=== PATIENT | female | born 1980 | race Caucasian/White ===

== ENCOUNTER 2022-03-16 13:54 | Outpatient (CLI) | payer BC, SELFPAY ==
--- NOTE | 2022-03-16 15:08 | ECG_ITS ---
Measurements Intervals [place] Rate: 75 P: 69 WY: 156 QRS: 55 QRSD: 88 T: 40 QT: 346 QTc: 389 Interpretive Statements SINUS RHYTHM NORMAL ECG Electronically Signed On 03-16-2022 15:28:08 CDT by Jhonathan Linares D.O.
== END 2022-03-16 13:55 | disposition home or self-care (01) ==
PROVIDERS: PCP Internal Medicine Infectious Disease; Visit Provider Obstetrics & Gynecology
DX: F17.210 Nicotine dependence, cigarettes, uncomplicated (principal); Z01.818 Encounter for other preprocedural examination
CPT/HCPCS: 93005

== ENCOUNTER 2022-03-22 00:28 | Day surgery (SDC) | payer BC, SELFPAY ==
[2022-03-14 13:33] VITALS: BMI 26.1
--- NOTE | 2022-03-14 13:41 | SUR.PREOP ---
Report to the Outpatient Waiting Room, entrance under the green pavilion located off [facility], at time _1000 on date _03/22/22 . OR Time: _1200 . - You and your visitor will be asked a series of questions to screen for COVID 19 for your protection. - Only one visitor is allowed at this time. - The patient visitor is requested to leave or wait in car when not with patient. - A mask is required within the hospital. Patients may have clear liquids (water, carbonated beverages, clear teas, apple juice) until 3 hours prior to surgery with a maximum of 20 ounces. - No food from midnight until time of surgery - Infants may have breast milk until 4 hours before surgery, infant formula 6 hours prior to surgery. - Children will be allowed to drink immediately following surgery. If applicable, please bring a bottle or sippy cup to assist with drinking. Juice, water, soda, and popsicles are readily available. For infants on formula, please bring formula the day of surgery. Pacifiers are allowed. Take the following medications with a SIP of water the morning of surgery: __qvar inhaler Medications to discontinue per physician ____vitamin Date to take last dose__03/19/22 Please no make-up, nail spanish, hairspray, perfume, deodorant, or body powder the day of surgery. No jewelry (including any body piercings) or valuables the day of surgery, leave them at home. Please take a shower or bath the night before, or the morning of, surgery with an antibacterial soap. Wear comfortable, loose fitting clothing. Children are encouraged to wear pajamas. - Jewelry must be removed prior to entering the operating room. Rings and piercings that are not removed may be cut off. - The hospital will not accept responsibility for valuables. - Please leave all valuables, including medications, at home the day of surgery. If you are going home after surgery, a licensed industrial truck driver must drive you home. - NO public transportation without another adult. - We recommend that an adult stay with you for 24 hours following discharge. - We also recommend that you do not drive, make important decision, drink alcoholic beverages, or take any drugs that were not prescribed by your health care provider for at least 24 hours after your discharge time. For Pediatric surgeries, we recommend two adults accompany the child home (only one inside the building at this time). Follow any additional instructions given to you from your surgeon. If you or anyone in your household have experienced Covid symptoms in the past week, please notify your surgeon or the nurse liaison at the phone number below for possible testing. Telephone instructions given to suzanna lin and asked if any additional questions and then verbalized understanding. Patient advised to call surgeon office or pre surgery nurse liaison [phone] if any additional questions.
--- NOTE | 2022-03-21 22:13 | PM.IMHP ---
H&P: HPI History of Present Illness Date/Time: 03/21/22 22:13 She is scheduled for laparoscopic bilateral salpingectomy due to her desire for sterilization. She declines nonpermanent forms of contraception. She is aware of added benefit of decrease future risk of ovarian cancer with a salpingectomy as sterilization procedure. Chief Complaint: Undesired fertility. Desires permanent sterilization. Review of Systems Review of Systems: All systems reviewed & are unremarkable except as noted in HPI and below Cardiovascular: Cardiovascular: Reports no additional cardiovascular complaints, Denies chest pain and Denies dyspnea Respiratory: Respiratory: Reports no additional respiratory complaints and Denies dyspnea Gastrointestinal: Gastrointestinal: Reports abdominal pain, Denies change in bowel habits, Denies diarrhea, Denies nausea and Denies vomiting Genitourinary: Genitourinary: Reports pelvic pain Musculoskeletal: Musculoskeletal: Reports back pain Integumentary/Breasts: Skin/Breast: Reports system reviewed and no additional complaints, except as docu Neurologic: Reports system reviewed and no additional complaints, except as documented PMFSH Past Medical History Medical History Seasonal allergic rhinitis Vaginal delivery x4 Surgical History Surgical History H/O LEEP History of appendectomy History of cholecystectomy History of nasal surgery Family History Family History Grandparent Family history of heart disease in male family member before age 55 Other Diabetes mellitus Family history of allergic disorder Social History Social History Smoking status: Current every day smoker Tobacco type: cigarettes Second hand tobacco smoke exposure: No Additional smoking assessment comments: 26 years 1ppd Alcohol intake: never Substance use: unknown Living arrangements: with family Spiritual care concerns: No Meds Home Medications and Allergies Home Medications Medication Instructions Recorded Confirmed Type albuterol sulfate 90 mcg/actuation 1 inhalation INHALATION Q4-6H PRN 08/03/20 03/22/22 History breath activated powder inhaler cetirizine 10 mg capsule 10 mg PO DAILY 08/03/20 03/22/22 History beclomethasone dipropionate [Qvar 1 inh INHALATION DAILY 03/14/22 03/22/22 History RediHaler] bsdzmvhxdupl-oswh-kkryd acid 1 tablet PO DAILY 03/14/22 03/22/22 History [Centrum Women] Allergies Allergy/AdvReac Type Severity Reaction Status Date / Time No Known Allergies Allergy Unknown Verified 03/15/22 15:14 Exam Const: Orientation/consciousness: oriented to person and oriented to place HENMT: Head: normal to inspection Eyes: General: appearance normal, both eyes and all related structures Resp: Effort & Inspection: normal respiratory effort Auscultation: clear to auscultation bilaterally Cardio: Rate: regular rate Rhythm: regular rhythm GI: Inspection: normal to inspection GI Palp: No Rebound tenderness present : External Female Exam: normal external appearance Speculum Exam - Vagina: normal appearance of the vagina Speculum Exam - Cervix: normal appearance of the cervix Bimanual Exam- Adnexa, other: no masses Neuro: General: oriented to person and oriented to place Cognition (Neuro): normal cognition Extrem: General: normal to inspection Psych: Appearance: grossly normal and well kempt Assessment and Plan Assessment and plan (1) Encounter for sterilization: Code(s): Z30.2 - Encounter for sterilization Status: Acute Assessment and Plan: Will proceed with laparoscopic bilateral salpingectomy.
[2022-03-22] VITALS (9 sets, daily range): BP systolic 77–101; BP diastolic 41–68; PULSE 50–75; RESP 12–20; TEMP 36.4; O2SAT 98–100
[2022-03-22] MEDS: ACETAMINOPHEN 500 MG TABLET 1000 MG PO (10:13)
[2022-03-22] MEDS: LACTATED RINGERS 1,000 ML 30 ML IV CONT ×2 (10:30→13:11)
[2022-03-22] MEDS: KETOROLAC 15 MG/ML VIAL (*BKC) IV PUSH (10:34)
--- NOTE | 2022-03-22 11:13 | WPDHPUPDATE1 ---
History and Physical Update Update Date/Time: 03/22/22 11:13 History and Physical has been reviewed, including an updated exam of the patient. There are NO changes in the patient's condition. Risks, benefits, and alternatives have been discussed and questions answered. Patient agrees to proceed with procedure.
--- NOTE | 2022-03-22 11:14 | WPDHPUPDATE1 ---
History and Physical Update Update Date/Time: 03/22/22 11:14 History and Physical has been reviewed, including an updated exam of the patient. There are NO changes in the patient's condition. Risks, benefits, and alternatives have been discussed and questions answered. Patient agrees to proceed with procedure.
--- NOTE | 2022-03-22 11:33 | WPDANESEPPF ---
Anes - Initial Pre Proc Eval Procedure: Operation Date: 03/22/22 12:00 Proposed Procedures p Bilateral Laparoscopic Salpingectomy - Bon Jacome MD Date/Time: 03/22/22 11:33 Surgeon: Bon Jacome MD Pre Op Diagnosis: desires sterilization Patient Data Age: 41 Gender: F Height: 1.6 m Weight: 66.6 kg Last Vital Signs Temp 36.4 C 03/22/22 10:26 Pulse 75 03/22/22 10:26 Resp 20 03/22/22 10:26 BP 101/46 L 03/22/22 10:26 Pulse Ox 98 03/22/22 10:26 Allergies Allergy/AdvReac Type Severity Reaction Status Date / Time No Known Allergies Allergy Unknown Verified 03/15/22 15:14 Home Medications Medication Instructions Recorded Confirmed Type albuterol sulfate 90 mcg/actuation 1 inhalation INHALATION Q4-6H PRN 08/03/20 03/22/22 History breath activated powder inhaler cetirizine 10 mg capsule 10 mg PO DAILY 08/03/20 03/22/22 History beclomethasone dipropionate [Qvar 1 inh INHALATION DAILY 03/14/22 03/22/22 History RediHaler] xnvgyxixitsc-nole-hdblk acid 1 tablet PO DAILY 03/14/22 03/22/22 History [Centrum Women] Patient hx anesthesia problems: none Family hx anesthesia problems: none Results Review: All pre-operative results and documents have been reviewed as part of the pre-operative evaluation. PMFSH Past Medical History Medical History Seasonal allergic rhinitis Vaginal delivery x4 Surgical History Surgical History H/O LEEP History of appendectomy History of cholecystectomy History of nasal surgery Family History Family History Grandparent Family history of heart disease in male family member before age 55 Other Diabetes mellitus Family history of allergic disorder Social History Social History Smoking status: Current every day smoker Tobacco type: cigarettes Second hand tobacco smoke exposure: No Additional smoking assessment comments: 26 years 1ppd Alcohol intake: never Substance use: unknown Living arrangements: with family Spiritual care concerns: No Anes - Eval Final PreProcedure Day of Procedure 03/22/22 11:33 Patient weight: normal Heart: regular rate and rhythm Lungs: clear to auscultation Airway: Mallampati scale class II Neurological: alert and oriented Last oral intake: >/= 8 hours ASA classification: II Emergent: no Anesthetic plan: proceed Anesthesia type and monitoring: general ETT and standard monitoring Results Review: All pre-operative results and documents have been reviewed as part of the pre-operative evaluation. Informed Consent: The patient's anesthetic plan and its attendant risks and benefits were discussed with the patient/family/POA. Questions were solicited and answers provided to the satisfaction of the patient/family/POA.
--- NOTE | 2022-03-22 12:11 | P.OP_ITS ---
Procedure Note - Detailed Date of Procedure 03/22/22 Pre-op Diagnosis desires sterilization Post-op Diagnosis Same Procedure Performed Laparoscopic bilatetal salpingectomy Surgeon Bon Jacome MD Anesthesia General Indications Undesired fertility Findings Normal uterus fallopian tubes and ovaries Description of Procedure After informed consent was obtained patient was taken to the operating room and general endotracheal anesthesia was administered. She was placed in low lithotomy need prep prepped sterile fashion. Attention was turned to the vagina speculum inserted single-tooth tenaculum placed on anterior lip of the cervix. Hooker uterine manipulator placed into the cervical canal. The speculum was removed. Attention was then turned to the abdomen. With sterile gloves a horizontal incision was made at the umbilicus and a Veress needle was inserted into the abdomen confirmation into the abdomen obtained with free flow of fluid and normal peritoneal pressures. A pneumoperitoneum of 15 mm per mercury was obtained. The 5 mm port was inserted under laparoscopic visualization. Patient was placed in Trendelenburg position. Attention was turned to the left side of the abdomen and a 5 mm port was inserted under laparoscopic visualization. The pelvic organs were visualized. Attention was turned to the right side of the abdomen and another 5 mm port was inserted under laparoscopic visualization. Using the LigaSure the left fallopian tube was excised to near the entrance to the uterus. This was removed through the port. Attention was then turned to the right fallopian tube which was grabbed at the distal end and cauterized from the mesial salpinx to near the entrance to the uterus. The fallopian tube was removed through the 5 mm port. Hemostasis was noted at both sites. Patient was taken out of Trendelenburg position the pneumoperitoneum was released and the skin incisions were closed in a subcuticular fashion with 4 O Vicryl. Estimated Blood Loss 5 Drains No Packing No Pathology Yes (right and left fallopian tube) Complications No immediate complications Condition Stable Disposition Same day [facility] Billing Surgery - Charge Forward: Surgery Billing
[2022-03-22] MEDS: BUPIVACAINE HCL 0.5% PF 30 ML VIAL INFILTRATE (12:48)
== END 2022-03-22 15:20 | disposition home or self-care (01) ==
PROVIDERS: PCP Internal Medicine Infectious Disease; Visit Provider Obstetrics & Gynecology
PROC: (CPT 49320; principal; 2022-03-22 12:00)
DX: Z30.2 Encounter for sterilization (principal); N73.6 Female pelvic peritoneal adhesions (postinfective); F17.210 Nicotine dependence, cigarettes, uncomplicated; Z79.51 Long term (current) use of inhaled steroids
CPT/HCPCS: 58661; 88302; 93005; A9270; J0330; J1100; J1885; J2250; J2405; J2704; J3010; J7030; J7120

== ENCOUNTER 2025-08-05 13:45 | Outpatient (CLI) | payer OTHER, SELFPAY ==
--- NOTE | ~2025-08-05 | MM_ITS ---
EXAMINATION: MM screening [facility] BI w bell HISTORY: Screening TECHNIQUE: Craniocaudal and mediolateral oblique 3-D tomosynthesis images were obtained and synthetic 2-D images were generated. CAD analysis was submitted and interpreted. COMPARISON: 02/11/2019 BREAST PARENCHYMAL COMPOSITION: The breasts are heterogeneously dense, which may obscure small masses. FINDINGS: There is no evidence of suspicious mass, calcification, or architectural distortion to suggest malignancy. Focal asymmetry in the lower inner quadrant of the left breast, middle depth. Focal asymmetry in the central left breast, middle depth. IMPRESSION: 1. Focal asymmetry in the lower inner quadrant of the left breast, middle depth. Focal asymmetry in the central left breast, middle depth. The study is incomplete. A diagnostic mammogram and a diagnostic ultrasound are recommended. 2. No mammographic evidence for malignancy in the right breast. BI-RADS 0: Incomplete-Need additional imaging evaluation. Reviewed, dictated and finalized at location Q. IMPRESSION: 1. Focal asymmetry in the lower inner quadrant of the left breast, middle depth . Focal asymmetry in the central left breast, middle depth. The study is incomp lete. A diagnostic mammogram and a diagnostic ultrasound are recommended. 2. No mammographic evidence for malignancy in the right breast. BI-RADS 0: Incomplete-Need additional imaging evaluation.
--- OUTSIDE RECORDS SUMMARY | 2025-08-05 13:50 | XMS_ITS | Encounter Summary ---
Author Organization [facility] Address [address] [place] [address] Care Team Providers Care Electrical Appliance Mechanic Name Role Phone Fidencio Garcia MD Primary Care Provider Encounter Details Date Type Department Care Team (Late st Contact Info) Description 09/01/2020 Telephone [facility] [address] [place] [address] [place] [address] Yu Head MD [address] [place] [address] [address] [place] [address] Social History Tobacco Use Types Packs/Day Years Used Date Smoking Tobacco: Every Day Cigarettes Smokeless Tobacco: Never Comments Unknown Sex and Gender Information Value Date Recorded Sex Assigned at Not on file 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 Patient was advice by doctor not to lift anything over 10lbs. Pt job is requiring her to lift 25+lbs. Patient is wanting to know if she can just have a doctors note stating she can take the rest of the week off until her week of recovery is over. documented in this encounter Plan of Treatment Upcoming Encounters Date Type Department Care Team (Late st Contact Info) Description 09/01/2025 1:30 PM CDT Office Visit [facility] - Dermatology [address] [place] [address], [place] [address] Scott aHnd MD [address] [place] [address] [address] [place] [address] documented as of this encounter Visit Diagnoses Not on filedocumented in this encounter Care Teams Electrical Appliance Mechanic Relationship Specialty Start Date End Date Fidencio Garcia MD [address] [place], [place] [phone] PCP - General 03/29/22 documented as of this encounter
--- OUTSIDE RECORDS SUMMARY | 2025-08-05 13:50 | XMS_ITS | Encounter Summary ---
Author Organization [facility] Address [address] [place] [address] Care Team Providers Care Wedding Photographer Name Role Phone Fidencio Garcia MD Primary Care Provider Reason for Visit * Reason Onset Date Comments Appointment 12/27/2022 Encounter Details Date Type Department Care Team (Late st Contact Info) Description 12/27/2022 Telephone [facility] [address] [place] [address] Scott Hand MD [address] [place] [address] [place] [address] Appointment Social History Tobacco Use Types Packs/Day Years Used Date Smoking Tobacco: Every Day Cigarettes Smokeless Tobacco: Never Alcohol Use Standard Drinks/Week Comments Not Currently 0 (1 standard drink = 0.6 oz pur e alcohol) Comments Unknown Sex and Gender Information Value Date Recorded Sex Assigned at Not on file Legal Sex Female 6: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 Gender Identity Not on file Sexual Orientation Not on file documented as of this encounter Miscellaneous Notes * Telephone Encounter - Katja Asencio - 12/27/2022 12:56 PM CST Pt has hx of Skin CA and is requesting sooner appointment, currently scheduled for March 2023 ICAL TRIALS SYSTEMS ADMINISTRATOR documented in this encounter Plan of Treatment Upcoming Encounters Date Type Department Care Team (Late st Contact Info) Description 09/01/2025 1:30 PM CDT Office Visit [facility] Dermatology [address] [place] [address], [place] [address] Scott Hand MD [address] [place] [address] [address] [place] [address] documented as of this encounter Visit Diagnoses Not on filedocumented in this encounter Care Teams Wedding Photographer Relationship Specialty [place] [address] [place] [phone] PCP - General 03/29/22 documented as of this encounter
--- OUTSIDE RECORDS SUMMARY | 2025-08-05 13:50 | XMS_ITS | Clinical Summary ---
Author Organization [facility] [employer] Address [address] [place] [address] Care Team Providers Care Clip On Sunglasses Inspector Name Role Phone Fidencio Garcia MD Primary Care Provider Source Comments [facility],non-owned Affiliates and Associated Physician Practices is amultiple site organization consisting of ambulatory clinics and hospital sitesin [place], [place], [place] and [place]. This disclosure is being madepursuant to the Care Everywhere program and may not contain all information available regarding this patient. Last updated 18.[facility] [employer] Allergies No known active allergies Medications * Be aware that medications may not be up to date on this document. Alwaysverify current medications with the patient. lidocaine (XYLOCAINE) 2 % viscous solutionIndicati ons:Acute pharyngitis, unspecified etiology 5 mL by Mouth/Throat route 3 times daily as needed for Sore Throat or Pain 100 mL 7 Active Additional Information Patient not taking.Reported on 03/03/2025 norethindrone (ORTHO MICRONOR; NOR-QD; STEPHANIE; BETSEY; WONG-BE; GUERA; JOLIVETTE) 0.35 MG tablet Take by mouth once daily Active albuterol HFA (PROVENTIL;HARMONY NOREEN;PROAIR) 108 (90 Base) MCG/ACT inhaler Inhale by mouth as needed Active QVAR REDIHALER 40 MCG/ACT inhaler Inhale by mouth at bedtime 0 Active Cetirizine HCl (ZYRTEC PO) Take by mouth once daily Active Ascorbic Acid (VITAMIN C ADULT GUMMIES PO) Active fluticasone-salm eterol hfa (Advair HFA) 115-21 MCG/ACT Advair HFA 115 mcg-21 mcg/actuation aerosol inhaler INHALE TWO PUFF BY MOUTH TWICE DAILY Active benzoyl peroxide (Benzac) 5 % washIndications: Inflamed epidermoid cyst of skin,Infectious folliculitis Use as body wash in shower over affected areas 1-2 times daily. Rinse well to avoid bleaching fabrics. 30 day supply. 236 mL 11 4 Active Additional Information Patient not taking.Reported on 03/03/2025 tretinoin (Retin-A) 0.1 % creamIndications :Acne vulgaris Pea sized amount to entire face at night. 30 days supply. 45 g 11 5 Active doxycycline hyclate 100 MG tabletIndication s:Acne Vulgaris Take 1 (one) tablet by mouth 2 times daily Reasons: Common Acne 60 tablet 2 5 Active clindamycin (Cleocin) 1 % lotionIndication s:Inflamed epidermoid cyst of skin Apply to affected areas on body once daily after showering. 30 day supply. 60 mL 11 5 Active Active Problems Problem Noted Date Diagnosed Date Hidradenitis suppurativa 03/05/2025 Neoplasm of uncertain behavior of skin 4 Inflamed epidermoid cyst of skin 06/16/2024 History of severe acute resp iratory syndrome coronavirus 2 (SARS-CoV-2) disease 04/05/2023 Infectious folliculitis 03/29/2021 Assessment & Plan (03/29/2021 10:52 AM CDT): -vs early HS -cont hibiclens -start clindamycin lotion daily after shower Surgical wound present 03/29/2021 Assessment & Plan (03/29/2021 10:53 AM CDT): -s/p oral antibiotics -start duoderm Other viral warts 03/29/2021 Assessment & Plan (03/29/2021 10:52 AM CDT): -R first finger -Patient educated about infectious etiology of verruca -Treatment options discussed, including, cryotherapy, salicylic acid, trichloroacetic acid, -Canthacur with or without Podophyllin, Podophyllin, Imiquimod treatment, netta antigen. -Patient desires treatment: cryotherapy, plan to add netta Ag injection in the future if not significant improvement. -Patient understands that multiple treatments may be required for complete resolution of lesions. -Wound care instructions reviewed and provided -Home care instructions reinforced- apply salicylic acid (Compound W, Dr. Trevinos, etc) at home to verruca overnight. Remove in the morning and file down with disposable emery board then discard used emery board. Discontinueor hold treatment if significant discomfort occurs. History of nonmelanoma skin cancer 03/29/2021 Assessment & Plan (03/29/2021 10:53 AM CDT): -NER today -continue q6m FBSE Actinic skin damage 03/29/2021 Assessment & Plan (03/29/2021 10:53 AM CDT): Explained benign nature, reassurance provided. ABCDEs of melanoma was explained to the pt, advised pt on consistent sunscreen use (SPF > 30, UVA + UVB). Monthly self-exam, and avoid direct sunlight/tanning. Multiple benign melanocytic nevi of upper extremity, lower extremity, and trunk 03/29/2021 Assessment & Plan (03/29/2021 10:53 AM CDT): -very dark s/p tanning bed use -previously biopsied few, all normal -- None atypical or more concerning than others on exam today - Counseled on importance of daily sun protection, and monthly self skin exams - Reviewed ABCDEs of melanoma - Advised sun protective behaviors and regular sun screen use - Annual FBSE Acne vulgaris 11/07/2020 Asthma 2020 Disorder of lipid metabolism 2020 Gastroesophageal reflux disease 2020 Tobacco dependence syndrome 2020 Tobacco user 2020 History of elevated lipids 04/07/2020 History of appendectomy 05/01/2017 Strep throat 12/25/2016 Encounters Date Type Department Care Team Description 05/25/2025 Telephone [facility] - General Dermatology [address] [place] [address] Juan Miguel Sánchez MD Follow-up from Last 3 Months Family History Medical History Relation Name Comments None Known Brother None Known Father None Known Maternal Aunt None Known Maternal Grandfather None Known Maternal Grandmother None Known Maternal Uncle None Known Mother None Known Other None Known Paternal Aunt None Known Paternal Grandfather None Known Paternal Grandmother None Known Paternal Uncle None Known Sister Asthma Neg Hx CVA Neg Hx Cancer - Breast Neg Hx Cancer - Other Neg Hx Cancer - Skin, Melanoma Neg Hx Cancer - Skin, Non Melanoma Neg Hx Eczema Neg Hx Hemophilia Neg Hx Psoriasis Neg Hx Relation Name Status Comments Brother Father Maternal Aunt Maternal Grandfather Maternal Grandmother Maternal Uncle Mother Other Paternal Aunt Paternal Grandfather Paternal Grandmother Paternal Uncle Sister Social History Tobacco Use Types Packs/Day Years Used Date Smoking Tobacco: Every Day Cigarettes Smokeless Tobacco: Never Tobacco Cessation:Ready to Q uit: Not Asked; Counseling Given: Not Answered Alcohol Use Standard Drinks/Week Comments Not Currently 0 (1 standard drink = 0.6 oz pur e alcohol) Comments Unknown Sex and Gender Information Value Date Recorded Sex Assigned at Not on file Legal Sex Female 6:31 AM DISTRIBUTION CENTER SUPERVISOR Gender Identity Not on file Sexual Orientation Not on file Last Filed Vital Signs Vital Sign Reading Time Taken Comments Blood Pressure 90/58 08/26/2020 10:30 AM CDT Pulse 53 08/26/2020 10:30 AM CDT Temperature 36.8 C (98.3 F) 12/22/2016 2:30 PM DISTRIBUTION CENTER SUPERVISOR Respiratory Rate 16 12/22/2016 2:30 PM DISTRIBUTION CENTER SUPERVISOR Oxygen Saturation 97% 12/22/2016 2:30 PM DISTRIBUTION CENTER SUPERVISOR Inhaled Oxygen Concentration - - Weight 67.1 kg (148 lb) 08/26/2020 7:36 AM CDT Height 158.8 cm (5' 2.5) 08/26/2020 7:36 AM CDT Body Mass Index 26.64 08/26/2020 7:36 AM CDT Plan of Treatment Upcoming Encounters Date Type Department Care Team (Late st Contact Info) Description 09/01/2025 1:30 PM CDT Office Visit [facility] - Dermatology [address] [place] [address], [place] [address] Scott Hand MD [address] [place] [address] [address] [place] [address] Health Maintenance Due Date Last Done Comments LIPID TESTING 1981 MAMMOGRAM 1981 HIV SCREENING 1996 HEPATITIS C SCREENING 07/18/1999 DTAP/TDAP/TD VACCINES (1 - Tdap) 2000 HEPATITIS B VACCINE (1 of 3 - 19+ 3-dose series) 2000 PNEUMOCOCCAL VACCINE (1 of 2 - PCV) 2000 PAP SMEAR 2002 HPV VACCINE (1 - 3-dose SCDM series) 2008 DEPRESSION SCREENING 11/12/2024 COVID-19 VACCINE (3 - 2024-2 6 season) 2025 08/23/2022, 01/14/2021 INFLUENZA VACCINE (#1) 2025 7, 09/18/2016 ZOSTER VACCINE (1 of 2) 2031 HIB VACCINE Aged Out No longer eligi ble based on patient's age to complete this topic MENINGOCOCCAL (Group B) VACCINE SHARED DECISION-MAKING Aged Out No longer eligible based on patient's age to complete this topic MENINGOCOCCAL GROUPS A/C/Y/W VACCINE Aged Out No longer eligible b ased on patient's age to complete this topic Insurance AETNA AET[employer] Care Teams Clip On Sunglasses Inspector Relationship Specialty Start Date End Date Fidencio Garcia MD [address] [place], [place] [phone] PCP - General 03/29/22
--- OUTSIDE RECORDS SUMMARY | 2025-08-05 13:50 | XMS_ITS | Encounter Summary ---
Author Organization [facility] Address [address] [address] Care Team Providers Care Closing Manager Name Role Phone Fidencio Garcia MD Primary Care Provider Reason for Visit * Reason Onset Date Comments Results 03/06/2025 Encounter Details Date Type Department Care Team (Late st Contact Info) Description 03/06/2025 Telephone [facility] - Centralized Scheduling [address] [place] [address] Juan Miguel Sánchez MD [facility] [facility] DEPT OF DERMATOLOGY [address] [place] [phone] Results Social History Tobacco Use Types Packs/Day Years Used Date Smoking Tobacco: Every Day Cigarettes Smokeless Tobacco: Never Alcohol Use Standard Drinks/Week Comments Not Currently 0 (1 standard drink = 0.6 oz pur e alcohol) Comments Unknown Sex and Gender Information Value Date Recorded Sex Assigned at Not on file Legal Sex Female 6:31 AM FIXING CARPENTER Gender Identity Not on file Sexual Orientation Not on file documented as of this encounter Miscellaneous Notes * Telephone Encounter - Katja Asencio - 03/06/2025 10:59 AM CDT Patient missed a call about results, please assist documented in this encounter Plan of Treatment Upcoming Encounters Date Type Department Care Team (Late st Contact Info) Description 09/01/2025 1:30 PM CDT Office Visit [facility] - Dermatology [address] [place] [address], [place] [address] Scott Hand MD [address] [place] [address] [address] [place] [address] documented as of this encounter Visit Diagnoses Not on filedocumented in this encounter Care Teams Closing Manager Relationship Specialty Start Date End Date Fidencoi Garcia MD [address] [place] [phone] PCP - General 03/29/22 documented as of this encounter
--- OUTSIDE RECORDS SUMMARY | 2025-08-05 13:50 | XMS_ITS | Clinical Summary ---
Author Organization [facility] Address [address] [place] [phone] Care Team Providers Care Electromechanisms Design Drafter Name Role Phone Unavailable Primary Care Provider Unavailabl e Social History Tobacco Use Types Packs/Day Years Used Date Smoking Tobacco: Never Assessed Comments Unknown Sex and Gender Information Value Date Recorded Sex Assigned at Not on file Legal Sex Female 7:55 AM COTTAGE PARENT Gender Identity Not on file Sexual Orientation Not on file Plan of Treatment Health Maintenance Due Date Last Done Comments Hepatitis C Virus (HCV) Screening 1981 Hepatitis B Immunization (1 of 3 - 19+ 3-dose series) 2000 Pap Smear 2002 Human Papillomavirus (HPV) Immunization (1 - 3-dose SCDM series) 2008 Cervical Cancer Screening (CCS) 2011 HPV/Cotest 2011 SARS-COV-2 Immunization ( season) 2024 Influenza Immunization (#1) 2025 02/0 02/2017, 09/18/2016 Respiratory Syncytial Virus (RSV) Immunization (Adult) (1 - 1-dose 75+ series) 2056 DTaP/Tdap/Td Immunization Discontinued 11/13/2016 TdaP Immunization Completed 11/13/2016 Meningococcal Immunization (ACWY) Aged Out No longer eligible based on patient's age to complete this topic Pneumococcal Immunization Combined Aged Out No longer eligible based on patient's age to complete this topic Rotavirus Immunization Aged Out No lo nger eligible based on patient's age to complete this topic Insurance [employer] on file
--- OUTSIDE RECORDS SUMMARY | 2025-08-05 13:50 | XMS_ITS | Clinical Summary ---
Author Organization [employer] Elizabeth cueto - 2022 Address [address] [facility] [address] [place] [address] Phone Care Team Providers Care Towboat Pilot Name Role Phone Unavailable Primary Care Provider Unavailabl e Social History Tobacco Use Types Packs/Day Years Used Date Smoking Tobacco: Never Assessed Comments Unknown Sex and Gender Information Value Date Recorded Sex Assigned at Not on file Legal Sex Female 8:40 AM MANAGER RECRUITING Gender Identity Not on file Sexual Orientation Not on file Plan of Treatment Health Maintenance Due Date Last Done Comments DTAP/TDAP/TD VACCINES (1 - Tdap) 2000 HEPATITIS B VACCINES (1 of 3 - 19+ 3-dose series) 07/13 HPV/Cotest (21-29) 2002 HPV VACCINES (1 - 3-dose SCDM series) 2008 CERVICAL CANCER SCREENING 2011 HPV/Cotest (30-65) 2011 PAP SMEAR 2011 BREAST CANCER SCREENING 2021 INFLUENZA VACCINE (#1) 2025
== END 2025-08-05 13:46 | disposition home or self-care (01) ==
LOC: CHSIMG 13:48
PROVIDERS: PCP Internal Medicine Infectious Disease; Visit Provider Obstetrics & Gynecology
DX: Z12.31 Encounter for screening mammogram for malignant neoplasm of breast (principal); R92.8 Other abnormal and inconclusive findings on diagnostic imaging of breast
CPT/HCPCS: 77063; 77067

== ENCOUNTER 2025-08-31 08:43 | Outpatient (CLI) | payer OTHER, SELFPAY ==
--- NOTE | ~2025-08-31 | MMUS_ITS ---
EXAMINATION: MM diagnostic isai LT w bell, US breast LT complete INDICATION: 45-year old female; BI-RADS 0, callback from screening to evaluate left breast findings. COMPARISON: 08/05/2025 through 02/11/2019 TECHNIQUE: Digital breast tomosynthesis True lateral and spot compression CC and MLO views of the LEFT breast were obtained with computer-aided detection to assist in interpretation of the study. MAMMOGRAM FINDINGS: The breasts are heterogeneously dense, which may obscure small masses. The focal asymmetry of concern in the inferior central left breast persists on spot compression views as a circumscribed mass. Ultrasound was performed for further evaluation. Focal asymmetry of concern in the central, at middle depth effaces on spot compression views compatible with superimposition of fibroglandular tissue. LEFT BREAST ULTRASOUND FINDINGS: Targeted evaluation of the areas of concern was completed. Corresponding to the mass seen on the mammogram at 5:00, 2 cm from the nipple there is a 1.4 x 1.1 x 1.4 cm simple cyst. Prominent dilated fluid containing ducts are noted in the subareolar region. IMPRESSION: LEFT breast simple cyst correlates to mammographic finding in the lower central 6:00 location. Left breast focal asymmetry in the central breast represents superimposition of fibroglandular tissue. No further investigation necessary. RECOMMENDATION: Annual screening mammography in 12 months. BI-RADS 2, BENIGN Reviewed, dictated and finalized at location B. IMPRESSION: LEFT breast simple cyst correlates to mammographic finding in the lower central 6:00 location. Left breast focal asymmetry in the central breast represents superimposition of fibroglandular tissue. No further investigation necessary. RECOMMENDATION: Annual screening mammography in 12 months. BI-RADS 2, BENIGN
--- OUTSIDE RECORDS SUMMARY | 2025-08-31 09:11 | XMS_ITS | Encounter Summary ---
Author Organization [facility] Address [address] [place] [address] Care Team Providers Care Upsetter Helper Name Role Phone Fidencio Garcia MD Primary Care Provider Reason for Visit * Reason Onset Date Comments Appointment 12/27/2022 Encounter Details Date Type Department Care Team (Late st Contact Info) Description 12/27/2022 Telephone [facility] [address] [place] [address] Scott Hand MD [address] [place] [address] [place] [address] Appointment Social History Tobacco Use Types Packs/Day Years Used Date Smoking Tobacco: Every Day Cigarettes Smokeless Tobacco: Never Alcohol Use Standard Drinks/Week Comments Not Currently 0 (1 standard drink = 0.6 oz pur e alcohol) Comments Unknown Sex and Gender Information Value Date Recorded Sex Assigned at Not on file Legal Sex Female 6:31 AM TELECOMMUNICATOR SUPERVISOR Gender Identity Not on file Sexual Orientation Not on file documented as of this encounter Miscellaneous Notes * Telephone Encounter - Katja Asencio - 12/27/2022 12:56 PM CST Pt has hx of Skin CA and is requesting sooner appointment, currently scheduled for March 2023 COMMUNICATOR SUPERVISOR documented in this encounter Plan of Treatment Not on file documented as of this encounter Visit Diagnoses Not on filedocumented in this encounter Care Teams Upsetter Helper Relationship Specialty [place] [address] [place] [phone] PCP - General 03/29/22 documented as of this encounter
--- OUTSIDE RECORDS SUMMARY | 2025-08-31 09:12 | XMS_ITS | Clinical Summary ---
Author Organization [employer] Elizabeth cueto - 2022 Address [address] [facility] [address] [place] [address] Phone Care Team Providers Care Director Nicu Name Role Phone Unavailable Primary Care Provider Unavailabl e Social History Tobacco Use Types Packs/Day Years Used Date Smoking Tobacco: Never Assessed Comments Unknown Sex and Gender Information Value Date Recorded Sex Assigned at Not on file Legal Sex Female 8:40 AM SURVEY PROJECT MANAGER Gender Identity Not on file Sexual Orientation [...]
--- OUTSIDE RECORDS SUMMARY | 2025-08-31 09:12 | XMS_ITS | Encounter Summary ---
Author Organization [facility] Address [address] [place] [address] Care Team Providers Care Blacking Wheel Tender Name Role Phone Fidencio Garcia MD Primary Care Provider Encounter Details Date Type Department Care Team (Late st Contact Info) Description 09/01/2020 Telephone [facility] [address] [place] [address] [place] [address] Yu Head MD [address] [place] [address] 3 [place] [address] Social History Tobacco Use Types Packs/Day Years Used Date Smoking Tobacco: Every Day Cigarettes Smokeless Tobacco: Never Comments Unknown Sex and Gender Information Value Date Recorded Sex Assigned at Not on file Legal Sex Female 6:31 AM INSURANCE SPECIALIST Gender Identity Not on file Sexual Orientation [...] on filedocumented in this encounter Care Teams Blacking Wheel Tender Relationship Specialty Start Date End Date Fidencio Garcia MD [address] [place], [place] [phone] PCP - General 03/29/22 documented as of this encounter
--- OUTSIDE RECORDS SUMMARY | 2025-08-31 09:12 | XMS_ITS | Encounter Summary ---
Author Organization [facility] Address [address] [facility] [address] [address] [place] [address] Care Team Providers Care Socket Puller Name Role Phone Fidencio Garcia MD Primary Care Provider Reason for Visit * Reason Onset Date Comments Results 03/06/2025 Encounter Details Date Type Department Care Team (Late st Contact Info) Description 03/06/2025 Telephone [facility] - Centralized Scheduling [address] [place] [address] Juan Miguel Sánchez MD [facility] [facility] DEPT OF DERMATOLOGY [address] [place] [phone] Results Social History Tobacco Use Types Packs/Day Years Used Date Smoking Tobacco: Every Day Cigarettes Smokeless Tobacco: Never Alcohol Use Standard Drinks/Week Comments Not Currently 0 (1 standard drink = 0.6 oz pur e alcohol) Comments Unknown Sex and Gender Information Value Date Recorded Sex Assigned at Not on file Legal Sex Female 6:31 AM EDUCATIONAL AID Gender Identity Not on file Sexual Orientation Not on file documented as of this encounter Miscellaneous Notes * Telephone Encounter - Katja Asencio - 03/06/2025 10:59 AM CDT Patient missed a call about results, please assist documented in this encounter Plan of Treatment Not on file documented as of this encounter Visit Diagnoses Not on filedocumented in this encounter Care Teams Socket Puller Relationship Specialty [place] [address] [place] [phone] PCP - General 03/29/22 documented as of this encounter
--- OUTSIDE RECORDS SUMMARY | 2025-08-31 09:12 | XMS_ITS | Clinical Summary ---
Author Organization [facility] Address [address] [facility] [place] [address] Care Team Providers Care Bobbin Dumper Name Role Phone Fidencio Garcia MD Primary Care Provider Source Comments [facility],non-owned Affiliates and Associated Physician Practices is amultiple site organization consisting of ambulatory clinics and hospital sitesin [place], [place], [place] and [place]. This disclosure is being madepursuant to the Care Everywhere program and may not contain all information available regarding this patient. Last updated 18.[facility] Allergies No known active allergies Medications * [...] History of appendectomy 05/01/2017 Strep throat 12/25/2016 Family History Medical History Relation Name Comments [...] on file Legal Sex Female 6:31 AM QUICK SERVICE TECHNICIAN Gender Identity Not on file Sexual Orientation Not on file Last Filed Vital Signs Vital Sign Reading Time Taken Comments Blood Pressure 90/58 08/26/2020 10:30 AM CDT Pulse 53 08/26/2020 10:30 AM CDT Temperature 36.8 C (98.3 F) 12/22/2016 2:30 PM QUICK SERVICE TECHNICIAN Respiratory Rate 16 12/22/2016 2:30 PM QUICK SERVICE TECHNICIAN Oxygen Saturation 97% 12/22/2016 2:30 PM QUICK SERVICE TECHNICIAN Inhaled Oxygen Concentration - - Weight 67.1 kg (148 lb) 08/26/2020 7:36 AM CDT Height 158.8 cm (5' 2.5) 08/26/2020 7:36 AM CDT Body Mass Index 26.64 08/26/2020 7:36 AM CDT Plan of Treatment Health Maintenance Due Date [...] age to complete this topic Insurance [employer] [facility] Address: [facility] [id number] [place] [phone] [employer] Care Teams Bobbin Dumper Relationship Specialty Start Date End Date Fidencio Garcia MD [address] [place], [place] [phone] PCP - General 03/29/22
--- OUTSIDE RECORDS SUMMARY | 2025-08-31 09:12 | XMS_ITS | Clinical Summary ---
Author Organization [facility] Address [address] [place] [phone] Care Team Providers Care Assistive Technology Trainer Name Role Phone Unavailable Primary Care Provider Unavailabl e Social History Tobacco Use Types Packs/Day Years Used Date Smoking Tobacco: Never Assessed Comments Unknown Sex and Gender Information Value Date Recorded Sex Assigned at Not on file Legal Sex Female 7:55 AM FINANCIAL AID COORDINATOR Gender Identity Not on file Sexual Orientation Not on file Plan of Treatment Health Maintenance Due Date Last Done Comments Hepatitis C Virus (HCV) Screening 1981 Hepatitis B Immunization (1 of 3 - 19+ 3-dose series) 2000 Pap Smear 2002 Human Papillomavirus (HPV) Immunization (1 - 3-dose SCDM series) 2008 Cervical Cancer Screening (CCS) 2011 HPV/Cotest 2011 Influenza Immunization (#1) 07/13/202502/2017, 09/18/2016 SARS-COV-2 Immunization ( season) 2025 Respiratory Syncytial Virus (RSV) Immunization (Adult) (1 [...]
== END 2025-08-31 08:44 | disposition home or self-care (01) ==
LOC: CHSIMG 08:44
PROVIDERS: PCP Internal Medicine Infectious Disease; Visit Provider Obstetrics & Gynecology
DX: R92.8 Other abnormal and inconclusive findings on diagnostic imaging of breast (principal)
CPT/HCPCS: 76641; 77061; 77065; G0279